=== PATIENT | male | born 1965 | race Caucasian/White ===

== ENCOUNTER 2016-12-12 16:58 | Observation (INO) | payer MEDICARE ==
[2016-12-12] MEDS ORDERED: SODIUM CHLORIDE 0.9% 500 ML IV STA (17:14)
[2016-12-12] MEDS ORDERED: SODIUM CHLORIDE 0.9% 1,000 ML IV STA (17:14)
[2016-12-12] MEDS ORDERED: MORPHINE SULFATE 4 MG/ML SYRINGE IV STA (17:14)
--- NOTE | 2016-12-12 17:43 | ED ---
General Adult HPI - General Chief complaint: Chest Pain Stated complaint: Chest Pain/SOB Time Seen by Provider: 12/12/16 17:13 Source: patient, RN notes reviewed, old records reviewed Mode of arrival: wheelchair Limitations: no limitations - History of Present Illness Initial comments: This is a 50-year-old male to the ER for evaluation. Patient with an EF evaluation of chest pain, severe chest pain. Shortness of breath. Patient has history of chest pain history of heart disease. Patient is a transfer patient elevated sign out AMA and himself here from [facility]. Patient continues a chest pain at this time no shortness of breath no fevers no cough no congestion. - Related Data Home Medications Medication Instructions Recorded Confirmed Diclofenac Sodium [Voltaren] 75 mg PO DAILY 12/12/16 12/12/16 Digoxin [Digitek] 250 mcg PO DAILY 12/12/16 12/12/16 Diltiazem HCl 120 mg PO DAILY 12/12/16 12/12/16 Esomeprazole Magnesium 40 mg PO AC-BID 12/12/16 12/12/16 Levothyroxine Sodium [Synthroid] 150 mcg PO DAILY 12/12/16 12/12/16 Lisinopril-Hctz 20-12.5 mg 1 tab PO DAILY 12/12/16 12/12/16 [Zestoretic 20-12.5] Multivitamins, Thera [Multivitamin 1 tab PO DAILY 12/12/16 12/12/16 (formulary)] Pravastatin Sodium [Pravachol] 20 mg PO DAILY 12/12/16 12/12/16 Vitamin B Complex 2 cap PO DAILY 12/12/16 12/12/16 Warfarin [Coumadin] 2 mg PO DAILY 12/12/16 12/12/16 Zolpidem Tartrate [Ambien] 5 mg PO HS PRN 12/12/16 12/12/16 oxyCODONE HCL 30 mg PO Q6H 12/12/16 12/12/16 Allergies Allergy/AdvReac Type Severity Reaction Status Date / Time No Known Allergies Allergy Verified 12/12/16 17:48 Review of Systems ROS Statement: Those systems with pertinent positive or pertinent negative responses have been documented in the HPI. ROS Other: All systems not noted in ROS Statement are negative. Past Medical History Past Medical History: Atrial Fibrillation, Diabetes Mellitus, Hyperlipidemia, Hypertension History of Any Multi-Drug Resistant Organisms: None Reported Additional Past Surgical History / Comment(s): hand surgery Past Psychological History: No Psychological Hx Reported Smoking Status: Current every day smoker Past Alcohol Use History: Occasional Past Drug Use History: None Reported General Exam Limitations: no limitations General appearance: alert, in no apparent distress, anxious Head exam: Present: atraumatic, normocephalic, normal inspection Eye exam: Present: normal appearance, PERRL, EOMI. Absent: scleral icterus, conjunctival injection, periorbital swelling ENT exam: Present: normal exam, mucous membranes moist Neck exam: Present: normal inspection. Absent: tenderness, meningismus, lymphadenopathy Respiratory exam: Present: normal lung sounds bilaterally. Absent: respiratory distress, wheezes, rales, rhonchi, stridor Cardiovascular Exam: Present: regular rate, normal rhythm, normal heart sounds. Absent: systolic murmur, diastolic murmur, rubs, gallop, clicks GI/Abdominal exam: Present: soft, normal bowel sounds. Absent: distended, tenderness, guarding, rebound, rigid Extremities exam: Present: normal inspection, full ROM, normal capillary refill. Absent: tenderness, pedal edema, joint swelling, calf tenderness Back exam: Present: normal inspection Neurological exam: Present: alert, oriented X3, CN II-XII intact Psychiatric exam: Present: normal affect, normal mood Skin exam: Present: warm, dry, intact, normal color. Absent: rash Course Vital Signs 12/12/16 12/12/16 17:06 17:58 Temperature 98.5 F Pulse Rate 86 84 Respiratory 20 18 Rate Blood Pressure 126/71 140/79 O2 Sat by Pulse 97 100 Oximetry - Reevaluation(s) Reevaluation #1: 12/12/16 18:30 Patient's the remainder chest pain EKG Findings - EKG Comments: EKG Findings:: EKG shows A. fib rate of 81, QRS 72, QTC 429 Medical Decision Making - Medical Decision Making 50 now the ER for reevaluation chest pain, severe anterior chest pain. Patient is admitted for chest pain observation - Lab Data Result diagrams: 12/12/16 18:04 Lab Results 12/12/16 Range/Units 18:04 WBC 6.9 (3.8-10.6) k/uL RBC 5.16 (4.30-5.90) m/uL Hgb 14.4 (13.0-17.5) gm/dL Hct 44.5 (39.0-53.0) % MCV 86.4 (80.0-100.0) fL MCH 28.0 (25.0-35.0) pg MCHC 32.4 (31.0-37.0) g/dL RDW 14.6 (11.5-15.5) % Plt Count 283 (150-450) k/uL Neutrophils % 68 % Lymphocytes % 23 % Monocytes % 4 % Eosinophils % 2 % Basophils % 1 % Neutrophils # 4.7 (1.3-7.7) k/uL Lymphocytes # 1.6 (1.0-4.8) k/uL Monocytes # 0.3 (0-1.0) k/uL Eosinophils # 0.1 (0-0.7) k/uL Basophils # 0.1 (0-0.2) k/uL - Radiology Data Radiology results: image reviewed Critical Care Time Critical Care Time: Yes Total Critical Care Time: 31 Disposition Clinical Impression: Chest pain Disposition: ADMITTED IP TO THIS HOSP Condition: Undetermined Instructions: Chest Pain (ED) Referrals: None,Stated [Primary Care Provider] - 1-2 days
[2016-12-12] MEDS ORDERED: NITROGLYCERIN SL TABS 0.4 MG TAB SUBLINGUAL PRN (18:10)
[2016-12-12] MEDS ORDERED: ASPIRIN 81 MG CHEW PO STA (18:10)
[2016-12-12 18:22] LABS: Basophils # (A) 0.1 k/uL (0-0.2); Basophils % (A) 1 %; CH 28.1; CHCM 32.7; Eosinophils # (A) 0.1 k/uL (0-0.7); Eosinophils % (A) 2 %; HCT 44.5 % (39.0-53.0); HDW 2.79; HGB 14.4 gm/dL (13.0-17.5); Luc # (Auto) 0.14; Luc % (Auto) 2; Lymphocytes # (A) 1.6 k/uL (1.0-4.8); Lymphocytes % (A) 23 %; MCHC 32.4 g/dL (31.0-37.0); MCV 86.4 fL (80.0-100.0); Mean Platelet Volume 7.4; Monocytes # (A) 0.3 k/uL (0-1.0); Monocytes % (A) 4 %; Neutrophils # (A) 4.7 k/uL (1.3-7.7); Neutrophils % (A) 68 %; RBC 5.16 m/uL (4.30-5.90); RDW 14.6 % (11.5-15.5); WBC 6.9 k/uL (3.8-10.6); WBC (Perox) 6.77
[2016-12-12 18:34] LABS: INR 2.6 (<1.1); Partial Thromboplastin Time 31.9 sec (22.0-30.0)
[2016-12-12 18:35] LABS: ALT 31 U/L (21-72); AST 20 U/L (17-59); Alkaline Phosphatase 136 U/L (38-126); Anion Gap 10 mmol/L; Blood Urea Nitrogen 11 mg/dL (9-20); Calcium 9.4 mg/dL (8.4-10.2); Carbon Dioxide 28 mmol/L (22-30); Chloride 102 mmol/L (98-107); Glucose 113 mg/dL (74-99); Magnesium 1.7 mg/dL (1.6-2.3); Non-African American GFR(MDRD) >60 (>60 ml/min/1.73 sqM); Potassium 4.5 mmol/L (3.5-5.1); Sodium 140 mmol/L (137-145); Total Bilirubin 0.5 mg/dL (0.2-1.3); Total Protein 7.7 g/dL (6.3-8.2)
[2016-12-12 18:50] LABS: Creatine Kinase 51 U/L (55-170)
[2016-12-12 19:03] LABS: Creatine Kinase MB 0.5 ng/mL (0.0-2.4); Troponin I <0.012 ng/mL (0.000-0.034)
[2016-12-12] MEDS ORDERED: NICOTINE 21MG/24HR PATCH TRANSDERM STA (19:05)
[2016-12-12 20:59] VITALS: BMI 32.8
[2016-12-12] MEDS ORDERED: ETODOLAC 400 MG TAB PO SCH (22:15)
[2016-12-12] MEDS ORDERED: LORATADINE 10 MG TAB PO SCH (22:15)
[2016-12-12] MEDS ORDERED: FAMOTIDINE 20 MG TAB PO SCH (22:15)
[2016-12-12] MEDS ORDERED: WARFARIN 2 MG TAB PO SCH (22:15)
[2016-12-12] MEDS ORDERED: CYCLOBENZAPRINE 10 MG TAB PO SCH (22:15)
[2016-12-12] MEDS: DILTIAZEM ORAL 60 MG TAB PO SCH (22:32)
[2016-12-12] MEDS: SODIUM CHLORIDE 0.9% 1,000 ML IV SCH (22:32)
[2016-12-13 00:43] LABS: Creatine Kinase 45 U/L (55-170)
[2016-12-13 00:57] LABS: Creatine Kinase MB 0.5 ng/mL (0.0-2.4); Troponin I <0.012 ng/mL (0.000-0.034)
[2016-12-13] MEDS: SODIUM CHLORIDE 0.9% 1,000 ML IV SCH (06:07)
[2016-12-13 06:22] LABS: Cholesterol 170 mg/dL (<200); HDL Cholesterol 21 mg/dL (40-60); Triglycerides 192 mg/dL (<150)
[2016-12-13] MEDS ORDERED: LEVOTHYROXINE 100 MCG TAB PO SCH (06:30)
[2016-12-13 06:52] LABS: Glucose,Whole Blood 109 mg/dL (75-99)
[2016-12-13 07:36] VITALS: BP 128/59; PULSE 65; RESP 18; TEMP 97.6
--- NOTE | 2016-12-13 08:36 | P.CRDCN ---
History of Present Illness Consult date: 12/13/16 Chief complaint: chest pain History of present illness: This is a pleasant 51-year-old gentleman who sees Dr. Bonilla in the office as an outpatient and as a matter of fact he just was seen recently and underwent myocardial perfusion imaging stress test last but we don't have the results yet at this point. The patient presented to the hospital complaining of chest discomfort, as a sharp kind of discomfort, in the middle of the chest, without any radiation and without any associated symptoms. The EKG showed atrial fibrillation without any significant changes. The patient had 3 sets of cardiac enzymes came in to be unremarkable. The patient is not aware of any prior history of CAD or previous stenting. He does have diabetes and chronic atrial fibrillation. Beside that he is a smoker. I will obtain a copy of the stress test which was performed recently from the office. Past Medical History Past Medical History: Atrial Fibrillation, COPD, Diabetes Mellitus, GERD/Reflux , Hyperlipidemia, Hypertension, Osteoarthritis (OA) History of Any Multi-Drug Resistant Organisms: None Reported Additional Past Surgical History / Comment(s): hand surgery, arm surgery. Clineblock disease Past Anesthesia/Blood Transfusion Reactions: No Reported Reaction Past Psychological History: No Psychological Hx Reported Smoking Status: Current every day smoker Past Alcohol Use History: Occasional Past Drug Use History: None Reported - Past Family History Mother Family Medical History: AFIB Father Family Medical History: Diabetes Mellitus, Hypertension Additional Family Medical History / Comment(s): Heart issues Medications and Allergies Home Medications Medication Instructions Recorded Confirmed Type Albuterol Inhaler [Ventolin Hfa 1 - 2 puff INHALATION Q6HR PRN 12/12/16 History Inhaler] Cyclobenzaprine [Flexeril] 10 mg PO HS 12/12/16 12/12/16 History Diclofenac Sodium [Voltaren] 75 mg PO HS 12/12/16 12/12/16 History Digoxin [Digitek] 250 mcg PO DAILY 12/12/16 12/12/16 History Diltiazem HCl 120 mg PO TID 12/12/16 12/12/16 History Esomeprazole Magnesium 40 mg PO DAILY 12/12/16 12/12/16 History Levothyroxine Sodium [Synthroid] 150 mcg PO DAILY 12/12/16 12/12/16 History Lisinopril-Hctz 20-12.5 mg 1 tab PO DAILY 12/12/16 12/12/16 History [Zestoretic 20-12.5] Loratadine [Claritin] 1 tab PO HS 12/12/16 12/12/16 History Multivitamins, Thera [Multivitamin 1 tab PO DAILY 12/12/16 12/12/16 History (formulary)] Pravastatin Sodium [Pravachol] 20 mg PO DAILY 12/12/16 12/12/16 History Ranitidine HCl [Zantac] 150 mg PO HS 12/12/16 12/12/16 History Vitamin B Complex 2 cap PO DAILY 12/12/16 12/12/16 History Warfarin [Coumadin] 2 mg PO HS 12/12/16 12/12/16 History Zolpidem Tartrate [Ambien] 5 mg PO HS PRN 12/12/16 12/12/16 History metFORMIN HCL [Glucophage] 500 mg PO BID PRN 12/12/16 12/12/16 History oxyCODONE HCL 30 mg PO Q6H PRN 12/12/16 12/12/16 History Allergies Allergy/AdvReac Type Severity Reaction Status Date / Time No Known Allergies Allergy Verified 12/12/16 20:33 Physical Exam Vitals: Vital Signs Temp Pulse Pulse Resp BP BP Pulse Ox 12/13/16 07:59 18 12/13/16 07:33 97.6 F 65 18 128/59 96 12/13/16 03:54 16 12/13/16 03:53 98.3 F 62 16 105/46 95 12/13/16 00:00 16 12/12/16 23:41 98.2 F 82 16 107/58 97 12/12/16 21:00 18 12/12/16 20:15 97.8 F 60 16 133/73 96 12/12/16 19:36 97.9 F 80 16 140/82 98 12/12/16 18:59 84 18 150/74 99 Intake and Output 12/12/16 12/13/16 12/13/16 22:59 06:59 14:59 Intake Total 800 Balance 800 Intake: Amount of Fluid Infused ( 800 ml) Other: # Voids 1 1 Weight 95 kg - Constitutional General appearance: no acute distress - Respiratory Respiratory: bilateral: CTA - Cardiovascular Rhythm: regular Heart sounds: normal: S1, S2 Results 12/12/16 18:04 12/12/16 18:04 Cardiac Enzymes 12/12/16 Range/Units 23:46 CK-MB (CK-2) 0.5 (0.0-2.4) ng/mL Troponin I <0.012 (0.000-0.034) ng/mL Lipids 12/13/16 Range/Units 05:22 Triglycerides 192 H (<150) mg/dL Cholesterol 170 (<200) mg/dL HDL Cholesterol 21 L (40-60) mg/dL Current Medications Generic Name Dose Route Start Last Admin Trade Name Freq PRN Reason Stop Dose Admin Aspirin 325 mg 12/13/16 09:00 Aspirin PO DAILY CHAVO Atorvastatin Calcium 80 mg 12/13/16 09:00 Lipitor PO DAILY CHAVO Cyclobenzaprine HCl 10 mg 12/12/16 22:15 12/12/16 22:32 Flexeril PO 10 mg HS CHAVO Administration Diltiazem HCl 120 mg 12/12/16 22:15 12/12/16 22:32 Cardizem Oral PO 120 mg TID CHAVO Administration Etodolac 400 mg 12/12/16 22:15 12/12/16 22:32 Lodine PO 400 mg HS CHAVO Administration Famotidine 20 mg 12/12/16 22:15 12/12/16 22:33 Pepcid PO 20 mg HS CHAVO Administration Sodium Chloride 1,000 mls @ 100 mls/hr 12/12/16 18:15 12/13/16 06:07 Saline 0.9% IV 100 mls/hr .Q10H CHAVO Administration Levothyroxine Sodium 150 mcg 12/13/16 06:30 12/13/16 06:07 Synthroid PO 150 mcg 0630 CHAVO Administration Loratadine 10 mg 12/12/16 22:15 12/12/16 22:33 Claritin PO 10 mg HS CHAOV Administration Nitroglycerin 0.4 mg 12/12/16 18:10 Nitrostat SUBLINGUAL Q5M PRN Chest Pain Oxycodone HCl 30 mg 12/12/16 18:22 12/13/16 06:08 Oxyir PO 30 mg Q6H PRN Administration Severe Pain Warfarin Sodium 2 mg 12/12/16 22:15 12/12/16 22:33 Coumadin PO 2 mg 1800 CHAVO Administration Intake and Output 12/12/16 12/13/16 12/13/16 22:59 06:59 14:59 Intake Total 800 Balance 800 Intake: Amount of Fluid Infused ( 800 ml) Other: # Voids 1 1 Weight 95 kg Assessment and Plan Plan: Assessment #1 atypical chest discomfort #2 chronic atrial fibrillation #3 significant history of smoking Plan #1 obtain a copy of the stress test which was performed last week in our office #2 further recommendation to follow that
[2016-12-13] MEDS ORDERED: ALBUTEROL NEBULIZED 2.5 MG/3 ML INHALATION PRN (08:46)
[2016-12-13] MEDS ORDERED: NON-FORMULARY DRUG (Oxycodone Hcl [Oxycodone Hcl] 30 MG) PO PRN (08:46)
[2016-12-13] MEDS ORDERED: metFORMIN 500 MG TAB PO PRN (08:46)
[2016-12-13] MEDS ORDERED: ZOLPIDEM 5 MG TAB PO PRN (08:46)
[2016-12-13] MEDS ORDERED: ATORVASTATIN 80 MG TAB PO SCH (09:00)
[2016-12-13] MEDS ORDERED: PRAVASTATIN SODIUM 20 MG TAB PO SCH (09:00)
[2016-12-13] MEDS ORDERED: ASPIRIN 325 MG TAB PO SCH (09:00)
[2016-12-13] MEDS ORDERED: PANTOPRAZOLE 40 MG TABLET PO SCH (09:00)
[2016-12-13] MEDS ORDERED: LISINOPRIL-HCTZ 20-12.5 MG 1 EACH TAB PO SCH (09:00)
[2016-12-13] MEDS ORDERED: DIGOXIN 250 MCG TAB PO SCH (09:00)
[2016-12-13] MEDS: DILTIAZEM ORAL 60 MG TAB PO SCH (09:12)
[2016-12-13 10:47] LABS: Hemoglobin A1C 6.6 % (4.2-6.1)
[2016-12-13] MEDS ORDERED: B COMPLEX-VIT C-VIT E-ZINC 1 EACH TAB PO SCH (12:00)
[2016-12-13] MEDS ORDERED: MULTIVITAMINS, THERA 1 EACH TAB PO SCH (12:00)
--- NOTE | 2016-12-13 12:38 | P.DS ---
Providers Date of admission: 12/12/16 18:10 Expected date of discharge: 12/13/16 Attending physician: Joe Garcia Consults: dr rico Primary care physician: Stated None Hospital Course: This is a pleasant 51-year-old gentleman who sees Dr. oBnilla in the office as an outpatient and as a matter of fact he just was seen recently and underwent myocardial perfusion imaging stress test last but we don't have the results yet at this point. The patient presented to the hospital complaining of chest discomfort, as a sharp kind of discomfort, in the middle of the chest, without any radiation and without any associated symptoms. The EKG showed atrial fibrillation without any significant changes. The patient had 3 sets of cardiac enzymes came in to be unremarkable. The patient is not aware of any prior history of CAD or previous stenting. chronic permanent atrial fibrillation. Rate controlled Current every day smoker. obtain a copy of the stress test which was performed recently from the office. Was unremarkable Patient was a transfer from [facility]. Patient fairly signed out AMA presented himself here. Chest protocol initiated with a cardiology consultation obtained were no new findings. Patient was felt to be stable and appropriate proceed with a discharge Discharge diagnosis Present on admission chest pain atypical features no evidence of acute coronary syndrome Type 2 diabetes non-insulin controlled hemoglobin A1c 6.6 Current every day smoker with probable COPD no evidence of acute exacerbation History of greater than a 20 year history of nicotine dependency Chronic pain opiate dependency with a pain contract Chronic atrial fibrillation permanent rate controlled on anticoagulation therapeutic INR 2.6 on admission The above dictated assessment and findings were discussed with dr garcia. Impression and the plan of care have been dictated as directed. Dayana Olivas nurse practitioner acting as a scribe for dr garcia Patient Condition at Discharge: Undetermined Plan - Discharge Summary Discharge Medication List Albuterol Inhaler [Ventolin Hfa Inhaler] 1 - 2 puff INHALATION Q6HR PRN [History] Cyclobenzaprine [Flexeril] 10 mg PO HS 12/12/16 [History] Diclofenac Sodium [Voltaren] 75 mg PO HS 12/12/16 [History] Digoxin [Digitek] 250 mcg PO DAILY 12/12/16 [History] Diltiazem HCl 120 mg PO TID 12/12/16 [History] Esomeprazole Magnesium 40 mg PO DAILY 12/12/16 [History] Levothyroxine Sodium [Synthroid] 150 mcg PO DAILY 12/12/16 [History] Lisinopril-Hctz 20-12.5 mg [Zestoretic 20-12.5] 1 tab PO DAILY 12/12/16 [History ] Loratadine [Claritin] 1 tab PO HS 12/12/16 [History] Multivitamins, Thera [Multivitamin (formulary)] 1 tab PO DAILY 12/12/16 [History ] Pravastatin Sodium [Pravachol] 20 mg PO DAILY 12/12/16 [History] Ranitidine HCl [Zantac] 150 mg PO HS 12/12/16 [History] Vitamin B Complex 2 cap PO DAILY 12/12/16 [History] Warfarin [Coumadin] 2 mg PO HS 12/12/16 [History] Zolpidem Tartrate [Ambien] 5 mg PO HS PRN 12/12/16 [History] metFORMIN HCL [Glucophage] 500 mg PO BID PRN 12/12/16 [History] oxyCODONE HCL 30 mg PO Q6H PRN 12/12/16 [History] Follow up Appointment(s)/Referral(s): None,Stated [Primary Care Provider] - 1-2 days Joe Garcia MD [STAFF PHYSICIAN] - 1 Week Sen Rico MD [STAFF PHYSICIAN] - 1 Week Patient Instructions/Handouts: Chest Pain (ED) Discharge Disposition: HOME SELF-CARE
--- NOTE | 2016-12-14 18:48 | HP ---
DATE OF ADMISSION: 12/12/2016 CHIEF COMPLAINT: Chest pain. HISTORY OF PRESENT ILLNESS: This is the first known admission for this 50-year-old gentleman. He presented to the emergency room with a sharp chest pain which radiated to the left scapula. He has never had any heart problems in the past and does not have diabetes, hypertension, etc. REVIEW OF SYSTEMS: He has had no syncope, neurologic problems, cough, hemoptysis, abdominal pain, vomiting, melena, renal disease, etc. Past medical history, family history, and personal and social histories reveal that he is ALLERGIC TO MORPHINE. MEDICATIONS: 1. Coumadin. 2. Ventolin. 3. Cardizem. 4. Lanoxin. 5. Lisinopril. 6. Thyroid. 7. Ambien. 8. Flexeril. 9. Oxycodone. 10. Metformin. 11. Zantac. He has been treated, apparently, for hypertension and hypercholesterolemia. He apparently had a stress test last week, which he believes he passed. He drinks 4 or 5 beers a day and he smokes 2 packs of cigarettes a day. PHYSICAL EXAMINATION: Blood pressure is 140/75 with a pulse of 93 and irregularly irregular. Respirations were 35 and he is afebrile. GENERAL: He appeared to be in no acute distress. Skin color is normal. Skin is warm and dry. Lymph nodes are not enlarged. Head, ears, eyes, nose, mouth and throat were normal. Thyroid was not enlarged. He had a left carotid bruit. CHEST: Chest to auscultation and percussion. Cardiac exam demonstrated atrial fibrillation with no murmurs or extra sounds. ABDOMEN: Soft, nontender. EXTREMITIES: Normal. NEUROLOGICAL: Intact. He is admitted to the hospital with the diagnoses: 1. Atypical chest pain. 2. History of hypertension. 3. Hyperlipidemia. 4. Atrial fibrillation. 5. Chronic obstructive pulmonary disease. 6. Alcohol abuse. 7. Ioe-fepksgs-noyhmymnt diabetes mellitus. PLAN: 1. Bed rest. 2. IV fluids. 3. Serial EKGs and enzymes.
--- NOTE | 2016-12-14 18:50 | PN ---
DATE OF SERVICE: 12/13/2016 CHIEF COMPLAINT: Chest pain and atrial fibrillation. HISTORY OF PRESENT ILLNESS: This gentleman is doing well. He has had no further problems. He has had no hemoptysis, chills, fever, orthopnea, PND, etc. PHYSICAL EXAMINATION: Chest is clear. The cardiac exam demonstrates atrial fibrillation. Abdomen is soft, nontender. IMPRESSION: 1. Atypical chest pain. 2. Atrial fibrillation. 3. Diabetes mellitus. 4. Left carotid bruit. PLAN: Probably home today. This will be arranged by the nurse practitioner.
== END 2016-12-13 12:50 | disposition home or self-care (01) ==
LOC: EC 16:58 → 3SUR 18:10 → 3OBS 12-13 12:04
PROVIDERS: ADMIT Family Medicine; ATTEND Family Medicine
DX: R07.89 Other chest pain (principal); I48.2 Chronic atrial fibrillation; E11.9 Type 2 diabetes mellitus without complications; R09.89 Other specified symptoms and signs involving the circulatory and respiratory systems; I10 Essential (primary) hypertension; E78.5 Hyperlipidemia, unspecified; F17.210 Nicotine dependence, cigarettes, uncomplicated; G89.29 Other chronic pain; F11.20 Opioid dependence, uncomplicated; Z79.899 Other long term (current) drug therapy; Z79.01 Long term (current) use of anticoagulants; Z79.1 Long term (current) use of non-steroidal anti-inflammatories (NSAID); K21.9 Gastro-esophageal reflux disease without esophagitis; M19.90 Unspecified osteoarthritis, unspecified site; Z82.49 Family history of ischemic heart disease and other diseases of the circulatory system; Z79.84 Long term (current) use of oral hypoglycemic drugs; Z88.5 Allergy status to narcotic agent; I51.9 Heart disease, unspecified; F10.10 Alcohol abuse, uncomplicated; E78.00 Pure hypercholesterolemia, unspecified
CPT/HCPCS: 96360 ×2; 96361 ×4; 99291 ×2; 36415; 93005; 80061; 80053; 83036; 82550; 82553; 83690; 83735; 84484; 85025; 85610; 85730; G0378 ×2; S4990

== ENCOUNTER → 2023-01-12 | Outpatient (CLI) | payer MEDICARE ==
--- NOTE | 2023-01-12 15:39 | CTL ---
EXAMINATION TYPE: CT Low Dose Lung DATE OF EXAM ORDERED: 01/12/2023 HISTORY: Long-term tobacco use. Lung cancer screening CT DLP: 113.[address] CTDI: 3.2 mGy Automated exposure control for dose reduction was used. SCREENING VISIT: Baseline COMPARISON: Non- TECHNIQUE: Low dose computed tomography scan was performed through the chest at 1 mm thick sections a nd reconstructed images in multiple planes at 1 mm and [address] DIAGNOSTIC QUALITY: Limited, but interpretable FINDINGS: LUNG NODULES: Present, detailed below: Peripheral 3 mm calcified nodule or benign granuloma in the lingula axial image 163. No definitive greater than 5 mm noncalcified pulmonary nodules. LUNGS: COPD: Severity: Mild Fibrosis: Severity: None Lymph nodes: Prominent and slightly enlarged AP window along with paratracheal and prevascular lymph nodes Other findings: Diffuse groundglass opacities bilaterally favor mild central alveolar edema RIGHT PLEURAL SPACE: Effusion: Small Calcification: None Thickening: None Pneumothorax: None LEFT PLEURAL SPACE: Effusion: None Calcification: None Thickening: None Pneumothorax: None HEART: Heart Size: Moderately Enlarged Coronary Calcification: Moderate to severe Pericardial Effusion: None OTHER FINDINGS: Upper abdomen: None Bony thorax: None Supraclavicular region: None Other: Prominent pulmonary arteries suggestive of underlying pulmonary hypertension. Mild/moderate ca lcified plaque of the aortic arch extends into the great vessels IMPRESSION: No suspicious greater than 5 mm noncalcified pulmonary nodules. CT LUNG RAD AND CT CHEST RECOMMENDATION: Lung-Rad 2 Benign Appearance or Behavior: Continue annual sc reening with LDCT in 12 months. S Modifier (other clinically significant findings): S 1. Findings consistent with CHF exacerbation fall present. There is cardiomegaly with mild to moderat e central alveolar edema. There is small right pleural effusion. 2. Moderate to severe coronary artery calcification. Correlate with additional cardiac risk factors. 3. Abnormal thoracic adenopathy. Differential includes neoplasm. Consider PET/CT to further evaluate based on clinical correlation.
== END | disposition home or self-care (01) ==
LOC: RADCTMAIN 14:35
PROVIDERS: ATTEND Internal Medicine
DX: Z12.2 Encounter for screening for malignant neoplasm of respiratory organs (principal); J44.9 Chronic obstructive pulmonary disease, unspecified; R91.8 Other nonspecific abnormal finding of lung field; I51.7 Cardiomegaly; I25.10 Atherosclerotic heart disease of native coronary artery without angina pectoris; J90 Pleural effusion, not elsewhere classified; R59.9 Enlarged lymph nodes, unspecified; Z87.891 Personal history of nicotine dependence
CPT/HCPCS: 71271

== ENCOUNTER → 2023-02-11 | Outpatient (CLI) | payer MEDICARE ==
--- NOTE | 2023-02-13 14:16 | PE ---
EXAMINATION TYPE: PET CT fusion skull to thigh DATE OF EXAM: 02/11/2023 COMPARISON: 01/12/2023 Prior PET/CT: None HISTORY: Solitary pulmonary nodule TECHNIQUE: Following the intravenous administration of 12.5 mCi of F-18 FDG, whole body images are p erformed from the skull base to the midthigh. Images are reviewed on the computer in the coronal, ax ial, and sagittal planes. Reconstructed rotating images are created on independent workstation and r eviewed on the computer. A localization and attenuation correction CT is performed in conjunction w ith the PET scan. DLP: 422.3 mGycm SCAN: Initial Blood glucose: 111 mg/dL Average Mediastinum SUV: 1.51 Average Liver SUV: 1.79 FINDINGS: NECK: No abnormal uptake THORAX: Suspicious uptake is not identified. The enlarged lymphadenopathy within the mediastinum odalis ins present. This has intermediate uptake, example images 76 superior mediastinal lymph node with an SUV of 1.69 and right paratracheal lymph node with an SUV value of 1.46. Consider reactive lymphadeno gabriel. Monitoring with CT chest can be performed. ABDOMEN: No abnormal uptake PELVIS: Abnormal uptake OSSEOUS STRUCTURES: No abnormal uptake. LOCALIZATION CT: There is a small right pleural effusion. COMPARISON: Mediastinal adenopathy and small right pleural effusion are stable from comparison IMPRESSION: 1. Intermediate signal within enlarged lymph nodes within the mediastinum more suggestive for benign process. Suspicious intense uptake not identified. Correlate with laboratory findings for lymphoma. Monitoring with CT chest recommended in 3 months. Repeat PET/CT imaging could be performed for suspi cious changing findings.
== END | disposition home or self-care (01) ==
LOC: RADPETMAIN 12:45
PROVIDERS: ATTEND Internal Medicine
DX: R91.1 Solitary pulmonary nodule (principal); R59.0 Localized enlarged lymph nodes
CPT/HCPCS: 78815; A9552

== ENCOUNTER 2023-08-05 10:04 | Day surgery (SDC) | payer MEDICARE ==
[~2023-08-05 10:04] MED LIST: ALPRAZolam 0.25 MG TAB PO PRN; ALPRAZolam 0.5 MG TAB PO PRN; ASPIRIN 325 MG TAB PO STA; NITROGLYCERIN SL TABS 0.4 MG TAB SUBLINGUAL PRN; SODIUM CHLORIDE 0.9% 1,000 ML in EMPTY BAG 1 BAG IV SCH
[2023-08-05] MEDS ORDERED: SODIUM CHLORIDE 0.9% 1,000 ML IV ONE (10:33)
[2023-08-05 10:59] LABS: Glucose,Whole Blood 128 mg/dL (70-110)
[2023-08-05 11:09] VITALS: BP 97/46; PULSE 61; RESP 18; TEMP 98.4
[2023-08-05 11:13] LABS: Anisocytosis Slight; Basophils # (A) 0.1 k/uL (0-0.2); Basophils % (A) 1 %; Eosinophils # (A) 0.1 k/uL (0-0.7); Eosinophils % (A) 2 %; Hypochromasia Marked; Lymphocytes # (A) 0.9 k/uL (1.0-4.8); Lymphocytes % (A) 13 %; MCH 18.7 pg (25.0-35.0); MCHC 27.7 g/dL (31.0-37.0); MCV 67.4 fL (80.0-100.0); Mean Platelet Volume 9.1; Microcytosis Marked; Monocytes # (A) 0.5 k/uL (0-1.0); Monocytes % (A) 7 %; Neutrophils # (A) 5.5 k/uL (1.3-7.7); Neutrophils % (A) 75 %; Platelet Count 281 k/uL (150-450); Poikilocytosis Slight; RBC 3.71 m/uL (4.30-5.90); RDW 17.3 % (11.5-15.5); WBC 7.2 k/uL (3.8-10.6)
[2023-08-05 11:18] LABS: HGB 6.9 gm/dL (13.0-17.5)
[2023-08-05 11:27] LABS: African American GFR (CKD) 61 (>60 ml/min/1.73 sqM); Anion Gap 16 mmol/L; Blood Urea Nitrogen 19 mg/dL (9-20); Calcium 9.3 mg/dL (8.4-10.2); Carbon Dioxide 26 mmol/L (22-30); Chloride 98 mmol/L (98-107); Glucose 120 mg/dL (74-99); Non-African American GFR(CKD) 53 (>60 ml/min/1.73 sqM); Potassium 4.1 mmol/L (3.5-5.1); Sodium 140 mmol/L (137-145)
== END 2023-08-05 12:51 | disposition home or self-care (01) ==
LOC: CATHCVL 10:04
PROVIDERS: ATTEND Internal Medicine
DX: Z53.8 Procedure and treatment not carried out for other reasons (principal); I48.20 Chronic atrial fibrillation, unspecified; I10 Essential (primary) hypertension; E78.5 Hyperlipidemia, unspecified; E11.9 Type 2 diabetes mellitus without complications; J44.9 Chronic obstructive pulmonary disease, unspecified; I27.20 Pulmonary hypertension, unspecified; I07.1 Rheumatic tricuspid insufficiency; Z87.891 Personal history of nicotine dependence; Z82.49 Family history of ischemic heart disease and other diseases of the circulatory system; Z79.899 Other long term (current) drug therapy
CPT/HCPCS: 80048; 85025

== ENCOUNTER 2023-09-21 09:37 | Day surgery (SDC) | payer MEDICARE ==
[2023-09-20 09:16] VITALS: BMI 26.4
[2023-09-21] MEDS: LACTATED RINGERS 1,000 ML IV SCH (10:43)
[2023-09-21 11:03] LABS: Glucose,Whole Blood 123 mg/dL (70-110)
[2023-09-21 11:12] VITALS: TEMP 97
[2023-09-21] MEDS ORDERED: LIDOCAINE 1% INJ 10MG/ML (20 ML MDV) ONE (11:54)
[2023-09-21] MEDS ORDERED: GLYCOPYRROLATE 0.2 MG/ML 2 ML VIAL ONE (11:54)
[2023-09-21] MEDS ORDERED: PROPOFOL 10 MG/ML 20 ML VIAL IV ONE (11:54)
[2023-09-21] MEDS ORDERED: fentaNYL (PF) 50 MCG/ML 2 ML AMP ONE (11:54)
[2023-09-21 12:39] LABS: Glucose,Whole Blood 114 mg/dL (70-110)
--- NOTE | 2023-09-21 13:02 | P.PCN ---
Date of Procedure: 09/21/23 Procedure(s) Performed: Brief history: Patient is a pleasant 57-year-old white male scheduled for an elective upper endoscopy as well as colonoscopy as a part of evaluation of severe iron deficiency anemia. Patient states that he was noted to have a hemoglobin of 6.7 g/dL in July and was given a unit of PRBC transition. He has history of A. fib and has been on Xarelto which has been on hold since then. He denies any rectal bleeding or melena. Procedure performed: Esophagogastroduodenoscopy biopsy Colonoscopy Preoperative diagnosis: Iron deficiency anemia Anesthesia: MAC Procedure: After informed consent was obtained from the patient was brought into the endoscopy unit and IV sedation was administered by anesthesia under continuous monitoring. Initially upper endoscopy was done. The Olympus GF 160 video endoscope was inserted inserted into the mouth and esophagus intubated without any difficulty and was gradually advanced into the stomach and duodenum and carefully examined. The bulb and second part of the duodenum appeared normal. Biopsies were done from the duodenum to rule out celiac disease. The scope was then withdrawn into the stomach adequately insufflated with air and upon careful examination the antrum had mild gastritis and biopsies were done from this area. Mucosa of the body, cardia and fundus appeared normal. The scope was then withdrawn into the esophagus. The GE junction was located at 40 cm to the incisors. It appeared regular with no erythema erosions or ulcerations. Rest of the esophagus appeared normal. Patient tolerated the procedure well. At this time the patient continued to remain sedation. Initial digital rectal examination was normal. Olympus CF 160 video colonoscope was then inserted into the rectum and gradually advanced to the cecum without any difficulty. Careful examination was performed as the scope was gradually being withdrawn. The prep was poor throughout the entire colon. Irrigation was performed. Some areas could not be adequately visualized. The cecum, ascending colon, transverse colon, descending colon, sigmoid colon and rectum appeared normal. Retroflexion was performed in the rectum and no lesions were noted. Patient tolerated the procedure well. Impression: 1. Upper Endoscopy revealed mild antral gastritis but no evidence of esophagitis or peptic ulcer disease or angiectasia 2. Colonoscopy revealed extremely poor prep throughout the entire colon but no evidence of colorectal neoplasia. Recommendations: Findings of this examination were discussed with the patient as well as his family. He was advised to follow with the biopsy results. Recommend repeat colonoscopy in one year because of the poor prep. Follow with Dr. Burkett for cardiac workup..
[2023-09-21 13:46] VITALS: BP 119/73; PULSE 67; RESP 17
== END 2023-09-21 13:36 | disposition home or self-care (01) ==
LOC: ORWHC2ENDO 09:37
PROVIDERS: ATTEND Internal Medicine Gastroenterology
DX: K29.50 Unspecified chronic gastritis without bleeding (principal); K31.9 Disease of stomach and duodenum, unspecified; D50.9 Iron deficiency anemia, unspecified; I48.91 Unspecified atrial fibrillation; I10 Essential (primary) hypertension; M19.90 Unspecified osteoarthritis, unspecified site; J44.9 Chronic obstructive pulmonary disease, unspecified; E11.9 Type 2 diabetes mellitus without complications; E07.9 Disorder of thyroid, unspecified; K21.9 Gastro-esophageal reflux disease without esophagitis; Z87.891 Personal history of nicotine dependence; Z79.01 Long term (current) use of anticoagulants; Z79.84 Long term (current) use of oral hypoglycemic drugs; Z79.899 Other long term (current) drug therapy
CPT/HCPCS: 45378; 43239; J2001; J3010; J2704; 88305

== ENCOUNTER 2023-10-14 11:16 | Day surgery (SDC) | payer MEDICARE ==
[2023-10-12 10:28] VITALS: BMI 26.6
[~2023-10-14 11:16] MED LIST changes: +HEPARIN SODIUM,PORCINE (1 ML) 2,500 UNIT in SODIUM CHLORIDE 0.9% 250 ML IRRIGATION PRN; +HEPARIN SODIUM,PORCINE 10,000 UNIT in SODIUM CHLORIDE 0.9% 1,000 ML IRRIGATION PRN
[2023-10-14] MEDS: SODIUM CHLORIDE 0.9% 1,000 ML IV ONE (11:32)
[2023-10-14 11:41] LABS: Glucose,Whole Blood 142 mg/dL (70-110)
[2023-10-14 11:47] VITALS: RESP 16; TEMP 97.7
[2023-10-14 12:16] LABS: African American GFR (CKD) 60 (>60 ml/min/1.73 sqM); Anion Gap 10 mmol/L; Blood Urea Nitrogen 23 mg/dL (9-20); Calcium 9.1 mg/dL (8.4-10.2); Carbon Dioxide 30 mmol/L (22-30); Chloride 100 mmol/L (98-107); Glucose 145 mg/dL (74-99); Non-African American GFR(CKD) 52 (>60 ml/min/1.73 sqM); Potassium 4.2 mmol/L (3.5-5.1); Sodium 140 mmol/L (137-145)
[2023-10-14 12:19] LABS: Anisocytosis Slight; Basophils # (A) 0.1 k/uL (0-0.2); Basophils % (A) 1 %; Eosinophils # (A) 0.2 k/uL (0-0.7); Eosinophils % (A) 2 %; HCT 37.5 % (39.0-53.0); Hypochromasia Moderate; Lymphocytes # (A) 1.4 k/uL (1.0-4.8); Lymphocytes % (A) 16 %; MCH 25.5 pg (25.0-35.0); MCHC 31.9 g/dL (31.0-37.0); Mean Platelet Volume 7.7; Microcytosis Slight; Monocytes # (A) 0.6 k/uL (0-1.0); Monocytes % (A) 7 %; Neutrophils # (A) 6.1 k/uL (1.3-7.7); Neutrophils % (A) 72 %; Platelet Count 280 k/uL (150-450); RBC 4.69 m/uL (4.30-5.90); WBC 8.4 k/uL (3.8-10.6)
[2023-10-14] MEDS ORDERED: VERAPAMIL 2.5 MG/ML 2 ML AMP ONE (13:13)
[2023-10-14] MEDS ORDERED: HEPARIN SODIUM 1,000 UN/ML (10ML VL) ONE (13:13)
[2023-10-14] MEDS ORDERED: fentaNYL (PF) 50 MCG/ML 2 ML AMP ONE (13:13)
[2023-10-14] MEDS: MIDAZOLAM 2 MG/2 ML VIAL IVP ONE ×2 (13:20→13:33)
[2023-10-14] MEDS: fentaNYL (PF) 50 MCG/ML 2 ML AMP IVP ONE (13:20)
[2023-10-14] MEDS: LIDOCAINE 2% (PF) 20 MG/ML 5 ML VIAL SQ ONE ×2 (13:23→13:27)
[2023-10-14] MEDS: VERAPAMIL SYRINGE (5 MG/10 ML) INTRAARTER ONE (13:33)
[2023-10-14] MEDS: HEPARIN SODIUM 1,000 UN/ML (10ML VL) IVP ONE (13:53)
[2023-10-14 13:57] LABS: O2 Sat Blood Gas 98.9 %
[2023-10-14 13:58] LABS: O2 Sat Blood Gas 64.9 %
[2023-10-14] MEDS: IOPAMIDOL-370 100ML BTL INJ ONE (13:58)
--- NOTE | 2023-10-14 14:10 | P.CARDCATH ---
Description of Procedure: PROCEDURES PERFORMED: Left and right heart catheterization, bilateral coronary angiography, ultrasound guided arterial access INDICATION: Abnormal stress test CONSENT:I have discussed the risks, benefits and alternative therapies for the above-mentioned procedure and for both sedation/analgesia as well as necessary blood product administration, if indicated, as they pertain to this patient. The patient has indicated understanding and acceptance of the risks and procedures discussed. PROCEDURE: After the risks, benefits and alternatives of the above mentioned procedure explained in detail with the patient, informed consent was obtained. Patient was taken to the catheterization lab and prepped and draped in usual fashion. Ultrasound guidance was used to assess for arterial access. 1% lidocaine was used to anesthetize the right radial artery. A 6-[place] sheath was placed in the right radial artery and right brachial vein using modified Seldinger technique and ultrasound guidance. A 6-[place] Orange-Godwin catheter was inserted in the right atrium, right ventricle, pulmonary artery and pulmonary A wedge position. Thermodilution was performed. Left coronary angiography was performed with a 5-[place] JL 3.5 catheter and right coronary angiography was performed with a 5-[place] FR5 catheter in various views. A 5-[place] FR5 catheter was inserted into the left ventricle and pressure measurements were obtained. The right radial sheath was removed and a TR band was placed with hemostasis achieved. The patient tolerated the procedure well. Patient was transported back to the post catheterization holding area in stable condition. Conscious Sedation: Patient was monitored under the direct supervision of myself for conscious sedation using Versed and fentanyl for a total duration of 38 minutes HEMODYNAMICS: Pulmonary capillary wedge position: 18 PA: 57/19, mean 30 RV: 57/2, RVEDP 15 RA: 14 Aortic: 154/51 LV: 156/6, LVEDP 19 "square root sign" noted on RV, LV tracings which can be seen with restrictive/ constrictive disease PA oxygen saturation: 65% RA oxygen saturation: 61% Right radial oxygen saturation: 99% Cardiac output by Tisha: 4.8 L/m Cardiac index by Tisha: 2.5 L/m/m Cardiac output by thermodilution: 4.5 L/m Cardiac index by Tisha: 2.38 L/m/m SELECTIVE CORONARY ARTERIOGRAPHY: LEFT MAIN: The left main is a large caliber vessel which bifurcates into the LAD and circumflex. There is no significant stenosis. LEFT ANTERIOR DESCENDING CORONARY ARTERY: LAD is a large caliber vessel which w raps around to the apex. There is mild diffuse calcification with 10-20% LAD stenosis. LEFT CIRCUMFLEX CORONARY ARTERY: Left circumflex is a moderate caliber vessel without significant stenosis. RIGHT CORONARY ARTERY: The right coronary artery is a large caliber vessel which gives off a PDA and PLV branch and is the dominant vessel. There is diffuse mild calcification with mild luminal irregularities of the RCA, 10-20%. FINAL IMPRESSION: 1. Relatively normal coronary arteries with mild luminal irregularities 2. Elevated left and right sided filling pressures 3. "square root sign" noted on RV, LV tracings which can be seen with restrictive/ constrictive disease 4. Borderline low cardiac output/cardiac index PLAN: 1. Aggressive risk factor modification per most recent ACC/AHA guidelines. 2. Consider more aggressive diuretics
[2023-10-14 16:12] VITALS: BP 124/63; PULSE 53
== END 2023-10-14 17:08 | disposition home or self-care (01) ==
LOC: CATHCVL 11:16
PROVIDERS: ATTEND Internal Medicine
DX: I48.19 Other persistent atrial fibrillation (principal); I50.32 Chronic diastolic (congestive) heart failure; J44.9 Chronic obstructive pulmonary disease, unspecified; Z87.891 Personal history of nicotine dependence; Z88.5 Allergy status to narcotic agent; Z88.8 Allergy status to other drugs, medicaments and biological substances; Z79.1 Long term (current) use of non-steroidal anti-inflammatories (NSAID); Z79.899 Other long term (current) drug therapy
CPT/HCPCS: 93460; 76937; 80048; 85018; 82810; 85025; 99152; 99153; C1769 ×2; C1894; C1751; J2250; J3010; J1644; Q9967; J2001

== ENCOUNTER 2024-11-02 09:41 | Day surgery (SDC) | payer MEDICARE ==
[2024-11-01 11:20] VITALS: BMI 26.6
[2024-11-02] MEDS: IV FLUID CONTINUATION 1,000 ML IV ONE (10:13)
[2024-11-02] MEDS: LACTATED RINGERS 1,000 ML IV SCH (10:18)
[2024-11-02 10:38] LABS: Glucose,Whole Blood 137 mg/dL (70-110)
[2024-11-02 10:40] VITALS: TEMP 97.4
[2024-11-02] MEDS ORDERED: PHENYLEPHRINE-0.9% NACL SYG 1,000 MCG/10 ML SYRINGE ONE (11:24)
[2024-11-02] MEDS ORDERED: LIDOCAINE 2% (PF) 20 MG/ML 5 ML VIAL ONE (11:24)
[2024-11-02] MEDS ORDERED: PROPOFOL 10 MG/ML 20 ML VIAL IV ONE (11:24)
--- NOTE | 2024-11-02 11:49 | P.PCN ---
Date of Procedure: 11/02/24 Procedure(s) Performed: Brief history: Patient is a pleasant 58-year-old white male scheduled for an elective upper endoscopy as well as colonoscopy as a part of evaluation of recurrent iron deficiency anemia. He had an EGD a year ago that revealed mild gastritis. Attempted colonoscopy a year ago was aborted because of poor prep. Patient was notified of iron deficiency anemia with a hemoglobin of 7 g/dL. History of A- fib on Eliquis which is on hold for 2 days. Procedure performed: Esophagogastroduodenoscopy Colonoscopy with snare polypectomy Preoperative diagnosis: Iron deficiency anemia Anesthesia: MAC Procedure: After informed consent was obtained from the patient was brought into the end oscopy unit and IV sedation was administered by anesthesia under continuous monitoring. Initially upper endoscopy was done. The Olympus GF 160 video endoscope was inserted inserted into the mouth and esophagus intubated without any difficulty and was gradually advanced into the stomach and duodenum and carefully examined. The bulb and second part of the duodenum appeared normal. The scope was then withdrawn into the stomach adequately insufflated with air and upon careful examination the antrum had linear areas of erythema consistent with gastritis. Mucosa body, cardia and fundus appeared normal. The scope was then withdrawn into the esophagus. The GE junction was located at 40 cm to the incisors. It appeared regular with no erythema erosions or ulcerations. Rest of the esophagus appeared normal. Patient tolerated the procedure well. At this time the patient continued to remain sedation. Initial digital rectal examination was normal. Olympus CF 160 video colonoscope was then inserted into the rectum and gradually advanced to the cecum without any difficulty. Careful examination was performed as the scope was gradually being withdrawn. The prep was poor in several areas of the colon. The radiation was performed. The cecum, ascending colon, transverse colon, descending colon, appeared normal. In the distal sigmoid colon there was a 1 cm polyp removed by snare polypectomy. In the rectum there was a 7 mm polyp removed by snare polypectomy. Rest of the sigmoid colon and rectum appeared normal. Retroflexion was performed in the rectum and no lesions were noted. Patient tolerated the procedure well. Impression: 1. Upper endoscopy revealed mild antral gastritis but no evidence of esophagitis or peptic ulcer disease or angiectasia 2. Colonoscopy revealed 1 cm sigmoid colon polyp and 7 mm rectal polyp status post snare polypectomy Recommendations: Findings of this examination were discussed with the patient as well as his family. He was advised to follow-up the biopsy results. If the biopsy reveals adenoma he can have repeat colonoscopy in 3 years.
[2024-11-02 12:16] VITALS: BP 100/50; PULSE 90; RESP 18
== END 2024-11-02 12:24 | disposition home or self-care (01) ==
LOC: ORWHC2ENDO 09:41
PROVIDERS: ATTEND Internal Medicine Gastroenterology
DX: D12.5 Benign neoplasm of sigmoid colon (principal); D12.8 Benign neoplasm of rectum; K29.50 Unspecified chronic gastritis without bleeding; K22.70 Barrett's esophagus without dysplasia; D50.9 Iron deficiency anemia, unspecified; I48.91 Unspecified atrial fibrillation; I10 Essential (primary) hypertension; E78.5 Hyperlipidemia, unspecified; E11.9 Type 2 diabetes mellitus without complications; F17.210 Nicotine dependence, cigarettes, uncomplicated; Z89.522 Acquired absence of left knee; Z89.521 Acquired absence of right knee; Z79.890 Hormone replacement therapy; Z79.84 Long term (current) use of oral hypoglycemic drugs; Z79.899 Other long term (current) drug therapy
CPT/HCPCS: 45385; 43235; J2704; J2003; J2371; 88305